=== PATIENT | female | born 1955 | race Two or more races ===

== ENCOUNTER 2016-07-07 10:20 | Emergency (ER) | payer SELFPAY ==
[~2016-07-07] VITALS: Ht 167.6 cm; Wt 90.0 kg
[~2016-07-07 10:20] MED LIST: HYDR-906 PO; METH500T PO; NAPR-688 PO
[2016-07-07 10:41] VITALS: Ht 167.6 cm; Wt 90.0 kg
[2016-07-07] MEDS ORDERED: PRED20TA PO (12:12)
[2016-07-07] MEDS ORDERED: BEN25 PO (12:12)
--- NOTE | 2016-07-07 12:15 | ERD ---
ER Documentation Chief Complaint Date/Time DATE: 07/07/16 TIME: 12:13 Chief Complaint ALLERGIC RASH X 4 DAYS HPI Pt complain of movnig red itchy rash to body x 4 days. No new food, exposures. No face swelling swallowing tongue swelling. no wheeze no sob. rash to face , trunk ROS All systems reviewed and are negative except as per history of present illness. Medications Home Meds Active Scripts Diphenhydramine Hcl* (Benadryl*) 25 Mg Cap, 25 MG PO Q6 Y for ITCHING/RASH, #30 TAB Prov:RADHA BLAIR. DO 07/07/16 Prednisone* (Prednisone*) 20 Mg Tab, 60 MG PO DAILY for 5 Days, TAB Prov:RADHA BLAIR DO 07/07/16 Naproxen* (Naproxen*) 500 Mg Tablet, 500 MG PO BID, #20 TAB Prov:SHAWNA CAMARGO DO 04/23/16 Methocarbamol* (Robaxin*) 500 Mg Tab, 500 MG PO Q8, #20 TAB Prov:SHAWNA CAMARGO DO 04/23/16 Hydrocodone/Acetaminophen ([place] 5-325 Tablet) 1 Each Tablet, 1 EACH PO Q6, #14 TAB Prov:SHAWNA CAMARGO DO 04/23/16 PMhx/Soc History of Surgery: Yes (CSECTION, LEFT SHOULDER SX, ADORE, LEFT OOPHORECTOMY) Anesthesia Reaction: No Hx Neurological Disorder: No Hx Respiratory Disorders: No Hx Cardiac Disorders: No Hx Psychiatric Problems: No Hx Miscellaneous Medical Probl: No Hx Alcohol Use: No Hx Substance Use: No Hx Tobacco Use: No FmHx Family History: No coronary disease Physical Exam Vitals Vital Signs Date Time Temp Pulse Resp B/P Pulse Ox O2 Delivery O2 Flow Rate FiO2 07/07/16 10:41 98.2 96 18 125/60 98 Physical Exam Const: Well-developed, well-nourished Head: Atraumatic, normocephalic Eyes: Normal Conjunctiva, PERRLA, EOMI, normal sclera, no nystagmus ENT: Normal External Ears, Nose and Mouth, moist mucus membranes. Neck: Full range of motion. No meningismus, no lymphadenopathy. Resp: Clear to auscultation bilaterally, no wheezing, rhonchi, rales Cardio: Regular rate and rhythm, no murmurs, S1 S2 present Abd: Soft, non tender x 4, non distended. Normal bowel sounds, no guarding or rebound, no pulsitile abdominal masses or bruits Skin: Hives to face chest and abdominal areas some on the arms] Back: No midline or flank tenderness Ext: No cyanosis, or edema, FROM x 4, normal inspection, neurovascularly intact x 4 Neur: Awake and alert, STR 5/5 x 4, sensation intact x 4, no focal findings, cerebellum intact Psych: Normal Mood and Affect Departure Diagnosis: Primary Impression: Allergic reaction Encounter type: initial encounter Qualified Code: T78.40XA - Allergic reaction, initial encounter Condition: Stable Patient Instructions: First Aid: Allergic Reactions RADHA BLAIR DO Jul 07, 2016 12:15
[2016-07-07] MEDS ORDERED: METHYLPREDNISOLONE 125 MG INJ ONE (12:35)
[2016-07-07] MEDS ORDERED: METHYLPREDNISOLONE 125 MG INJ IM ONE (13:00)
== END 2016-07-07 13:11 | disposition home or self-care (01) ==
LOC: FTE 10:20
DX: R21 Rash and other nonspecific skin eruption (principal)
CPT/HCPCS: 96372; 99284; J2930